=== PATIENT | female | born 1955 | race Caucasian/White ===

== ENCOUNTER 2020-01-04 11:14 | Inpatient (IN) | payer MEDICARE ==
[~2020-01-04] VITALS: Ht 162.6 cm; Wt 72.8 kg
[2020-01-04 12:20] VITALS: BP 91/41
[2020-01-04] MEDS ORDERED: PROPOFOL 10 MG/ML 20ML VIAL IV ONE (12:32)
[2020-01-04] MEDS ORDERED: LIDOCAINE HCL-MPF 2% 5ML VIAL ONE (12:33)
[2020-01-04 12:40] LABS: BASOPHILS % (AUTO) 0.5 % (0.0-5.0); EOSINOPHILS % (AUTO) 0.2 % (0.0-8.0); LYMPHOCYTES % (AUTO) 14.2 % (21.0-51.0); MEAN CORPUSCULAR HEMOGLOBIN 27.2 pg (27.0-33.0); MEAN CORPUSCULAR HGB CONC 32.4 g/dL (32.0-36.0); MEAN CORPUSCULAR VOLUME 83.9 fL (79-99); MONOCYTES % (AUTO) 8.1 % (3.0-13.0); NEUTROPHILS % (AUTO) 72.8 % (40.0-77.0); NUCLEATED RED BLOOD CELLS 0.2 % (0.0-0.19); PLATELET COUNT (AUTO) 272 K/uL (130-400); RED BLOOD CELL COUNT(AUTO) 2.24 MIL/uL (4.00-5.50); RED CELL DISTRIBUTION WIDTH 19.2 % (11.0-15.5); WHITE BLOOD COUNT (AUTO) 12.8 K/uL (4.8-10.8)
[2020-01-04] MEDS ORDERED: PHENYLEPHRINE HCL 10 MG/ML 1ML VIAL IV ONE (12:47)
[2020-01-04] MEDS ORDERED: SODIUM CHLORIDE 0.9% 10 ML VIAL ONE (12:47)
[2020-01-04 12:51] LABS: INR 1.13 (0.85-1.15); PROTHROMBIN TIME 12.1 SEC (9.6-11.6)
[2020-01-04 12:53] LABS: CREATININE 0.8 mg/dL (0.5-1.5); POTASSIUM 4.3 mmol/L (3.5-5.1)
[2020-01-04 13:02] LABS: ALBUMIN 2.6 g/dL (3.5-5.0); HEMATOCRIT 18.8 % (36-48); TOTAL PROTEIN, SERUM 5.7 g/dL (6.0-8.3)
[2020-01-04] MEDS ORDERED: METOCLOPRAMIDE 10 MG/2 ML VIAL ONE ×2 (14:51→21:18)
[2020-01-04 22:05] VITALS: BP 103/61
[2020-01-05] VITALS (16 sets, daily range): BP systolic 86–131; BP diastolic 51–73
[2020-01-05] MEDS ORDERED: MORPHINE SULFATE 2 MG/ML 1ML SYG IM PRN (00:30)
[2020-01-05] MEDS ORDERED: VALA10002 PO (00:44)
[2020-01-05 02:13] LABS: BASOPHILS % (AUTO) 0.5 % (0.0-5.0); EOSINOPHILS % (AUTO) 0.2 % (0.0-8.0); HEMATOCRIT 23.7 % (36-48); LYMPHOCYTES % (AUTO) 14.1 % (21.0-51.0); MEAN CORPUSCULAR HEMOGLOBIN 28.3 pg (27.0-33.0); MEAN CORPUSCULAR HGB CONC 34.2 g/dL (32.0-36.0); MEAN CORPUSCULAR VOLUME 82.9 fL (79-99); MONOCYTES % (AUTO) 8.8 % (3.0-13.0); NEUTROPHILS % (AUTO) 74.7 % (40.0-77.0); NUCLEATED RED BLOOD CELLS 0.3 % (0.0-0.19); PLATELET COUNT (AUTO) 163 K/uL (130-400); RED BLOOD CELL COUNT(AUTO) 2.86 MIL/uL (4.00-5.50); RED CELL DISTRIBUTION WIDTH 16.3 % (11.0-15.5); WHITE BLOOD COUNT (AUTO) 12.5 K/uL (4.8-10.8)
[2020-01-05] MEDS ORDERED: FAMOTIDINE/PF 20 MG/2 ML VIAL IV ONE (02:19)
[2020-01-05 02:34] LABS: ALBUMIN 2.4 g/dL (3.5-5.0); BILIRUBIN,TOTAL 2.5 mg/dL (0.2-1.0); CREATININE 0.7 mg/dL (0.5-1.5); POTASSIUM 3.8 mmol/L (3.5-5.1); TOTAL PROTEIN, SERUM 5.3 g/dL (6.0-8.3)
[2020-01-05 02:43] LABS: INR 1.08 (0.85-1.15); PARTIAL THROMBOPLASTIN TIME 24.7 SEC (26.3-35.5); PROTHROMBIN TIME 11.6 SEC (9.6-11.6)
[2020-01-05] MEDS ORDERED: LORA2ORA5 PO (03:10)
[2020-01-05] MEDS ORDERED: CORTSOL AD (03:10)
[2020-01-05] MEDS ORDERED: LEVO50TA11 PO (03:10)
[2020-01-05] MEDS ORDERED: HYDR-3422 PO (03:10)
[2020-01-05] MEDS: METOCLOPRAMIDE 10 MG/2 ML VIAL IM SCH (03:14)
[2020-01-05] MEDS: ONDANSETRON HCL 4 MG/2 ML VIAL IVP PRN (03:14)
[2020-01-05] MEDS: SODIUM CHLORIDE 0.9% 1000ML 1,000 ML IV SCH ×2 (08:53→10:30)
[2020-01-05] MEDS ORDERED: FAMOTIDINE/PF 20 MG/2 ML VIAL IV SCH (09:00)
[2020-01-05] MEDS ORDERED: PROPOFOL 10 MG/ML 20ML VIAL IV ONE (12:19)
[2020-01-05] MEDS ORDERED: OCTREOTIDE ACETATE 1,250 MCG in SODIUM CHLORIDE 0.9% 250 ML IV SCH ×2 (12:30→13:15)
--- NOTE | 2020-01-05 12:50 | NUR ---
[facility] CONSULT PATIENT CURRENTLY NOT IN ROOM; UNABLE TO ASSESS DUE TO SCHEDULED PROCEDURE. WILL CHECK BACK AT A LATER TIME FOR CONSULT. Addendum: 01/05/20 at 1253 by NIGEL ESCOBAR LVN Amended: Links added.
[2020-01-05] MEDS ORDERED: OCTREOTIDE ACETATE 100 MCG/ML AMP IV SCH ×2 (13:15)
--- NOTE | 2020-01-05 16:52 | NUR ---
DISCHARGE PLANNING, POSSIBLE SNF? MET W PATIENT FOR DC PLANNING LIVES ALONE, HAS TWO CANES, SOMETIMES USES ONE, SOME TIMES BOTH; HOME ISS SAFE AND ACCESSIBLE, USED TO DRIVE, BUT IS VERY WEAK AND CANNOT RIGHT NOW..[facility] OR ONE OF HER FRIEND RYAN OR SHER, HAS GOOD SUPPORT SYSTEM; PATIENT HAS BEEN 'FIGHTING THIS (CANCER) FOR A VERY LONG TIME'; WAS ON ONCE MONTHLY INFUSION, BUT THEY HAVE BEEN STOPPED. HAS A HISTORY OF FALLS. DISCUSSED PLACEMENT, PATIENT INTERESTED. DOS NOT KNOW WHICH FACILITY. IS FAMILIAR WITH ALL SNF'S IN [facility]. CALL TO DR. JENSEN, DISCUSSED DCP ELZBIETA, GOT ORDER OFR PT, RD, AND SNF REFERRAL IF PT AGREES AND PT RECOMMENDS CM TO FOLLOW IN AM AFTER PT EVAL Addendum: 01/05/20 at 1811 by GERMAN CATHERINE RN CM Amended: Links added.
[2020-01-05] MEDS: PANTOPRAZOLE SODIUM 40 MG TABLET.DR PO SCH (20:14)
[2020-01-06] VITALS (7 sets, daily range): BP systolic 91–105; BP diastolic 53–65
[2020-01-06] MEDS: METOCLOPRAMIDE 10 MG/2 ML VIAL IM SCH (02:39)
--- NOTE | 2020-01-06 05:36 | NUR ---
report called to giovanny all questions answered pt [id number] at time of transfer lfa iv still in place. gonzález sparrow sent with patient
[2020-01-06] MEDS: ONDANSETRON HCL 4 MG/2 ML VIAL IVP PRN ×3 (06:06→23:21)
[2020-01-06] MEDS: PANTOPRAZOLE SODIUM 40 MG TABLET.DR PO SCH ×2 (09:10→20:51)
--- NOTE | 2020-01-06 16:00 | NUR ---
DR. MARTIN Ghosh CAME TO SEE PATIENT AT BEDSIDE, ORDERS CBC, BMP NO OTHER ORDERS AT THIS TIME.
--- NOTE | 2020-01-06 18:14 | NUR ---
DIET Davina EDWARD CAME IN TO SEE PATIENT WANTED TO ADVANCE HER DIET BUT PT REFUSES THE ADVANCE DIET D/T HAVING PAIN. SHE WANT TO REMAIN ON FULL LIQUIDS FOR NOW.
[2020-01-06] MEDS: SODIUM CHLORIDE 0.9% 1000ML 1,000 ML IV SCH (20:52)
[2020-01-07] MEDS: SODIUM CHLORIDE 0.9% 1000ML 1,000 ML IV SCH ×3 (01:32→20:16)
[2020-01-07 04:00] VITALS: BP 99/64
[2020-01-07 05:15] LABS: MEAN CORPUSCULAR HEMOGLOBIN 28.3 pg (27.0-33.0); MEAN CORPUSCULAR VOLUME 85.5 fL (79-99); PLATELET COUNT (AUTO) 139 K/uL (130-400); RED BLOOD CELL COUNT(AUTO) 2.69 MIL/uL (4.00-5.50); RED CELL DISTRIBUTION WIDTH 17.6 % (11.0-15.5); WHITE BLOOD COUNT (AUTO) 6.9 K/uL (4.8-10.8)
[2020-01-07 05:24] LABS: CREATININE 0.7 mg/dL (0.5-1.5); POTASSIUM 3.2 mmol/L (3.5-5.1)
[2020-01-07 05:28] LABS: BASOPHILS % (MANUAL) 2 % (0-2); LYMPHOCYTES % (MANUAL) 16 % (22-44); MAN.DIFF COMMENT-IMPRESSION MANUAL DIFFERENTIAL; MONOCYTES % (MANUAL) 2 % (2-9); PLATELET MORPHOLOGY COMMENT ADEQUATE; SEGMENTED NEUTROPHILS % 80 % (40-70)
[2020-01-07 07:47] VITALS: BP 94/64
[2020-01-07] MEDS: PANTOPRAZOLE SODIUM 40 MG TABLET.DR PO SCH ×2 (08:59→20:15)
[2020-01-07 11:24] VITALS: BP 107/54
[2020-01-07] MEDS ORDERED: LIDOCAINE HCL-MPF 1% 2ML VIAL IV PRN (12:00)
[2020-01-07] MEDS ORDERED: POTASSIUM CHLORIDE 20MEQ/100ML 100 ML IV PRN (12:00)
[2020-01-07] MEDS ORDERED: POTASSIUM CHLORIDE 10% ELIXIR 20 MEQ/15 ML UDCUP PO PRN (12:00)
[2020-01-07] MEDS: ONDANSETRON HCL 4 MG/2 ML VIAL IVP PRN (13:22)
--- NOTE | 2020-01-07 13:25 | NUR ---
NAUSEA PT C/O OF NAUSEA GIVEN 4MG OF ZOFRAN
[2020-01-07] MEDS: POTASSIUM CHLORIDE 20 MEQ ERTAB PO PRN ×3 (14:45→20:18)
[2020-01-07 16:13] VITALS: BP 97/57
--- NOTE | 2020-01-07 17:38 | NUR ---
DCP SNF CM in to speak w pt twice today regarding Md order/recommendation for SNF. Discussed local SNF options. She mentions that she will speak w her brother first before making a decision. She states that she does not want to go to [facility] or [facility]. She mentions that she will inform CM of her decision once she discusses further w her brother and Dr. Salinas.
[2020-01-07 20:00] VITALS: BP 97/55
[2020-01-07 23:36] VITALS: BP 96/49
[2020-01-08 04:00] VITALS: BP 104/60
[2020-01-08 05:26] LABS: BASOPHILS % (AUTO) 0.4 % (0.0-5.0); EOSINOPHILS % (AUTO) 1.2 % (0.0-8.0); HEMATOCRIT 24.2 % (36-48); LYMPHOCYTES % (AUTO) 15.2 % (21.0-51.0); MEAN CORPUSCULAR HEMOGLOBIN 28.4 pg (27.0-33.0); MEAN CORPUSCULAR HGB CONC 32.6 g/dL (32.0-36.0); MEAN CORPUSCULAR VOLUME 87.1 fL (79-99); MONOCYTES % (AUTO) 11.5 % (3.0-13.0); NEUTROPHILS % (AUTO) 70.4 % (40.0-77.0); PLATELET COUNT (AUTO) 170 K/uL (130-400); RED BLOOD CELL COUNT(AUTO) 2.78 MIL/uL (4.00-5.50); RED CELL DISTRIBUTION WIDTH 17.8 % (11.0-15.5); WHITE BLOOD COUNT (AUTO) 7.5 K/uL (4.8-10.8)
[2020-01-08 05:40] LABS: CREATININE 0.8 mg/dL (0.5-1.5); POTASSIUM 3.7 mmol/L (3.5-5.1)
[2020-01-08] MEDS: ONDANSETRON HCL 4 MG/2 ML VIAL IVP PRN ×2 (06:02→20:46)
[2020-01-08 07:30] VITALS: BP 96/60
[2020-01-08] MEDS: PANTOPRAZOLE SODIUM 40 MG TABLET.DR PO SCH ×2 (09:23→20:46)
[2020-01-08 11:00] VITALS: BP 103/65
[2020-01-08 16:00] VITALS: BP 90/63
[2020-01-08 20:24] VITALS: BP 91/51
[2020-01-09 00:08] VITALS: BP 94/54
[2020-01-09 03:57] VITALS: BP 93/51
[2020-01-09] MEDS: SODIUM CHLORIDE 0.9% 1000ML 1,000 ML IV SCH (05:26)
[2020-01-09] MEDS: PANTOPRAZOLE SODIUM 40 MG TABLET.DR PO SCH ×2 (09:10→22:39)
--- NOTE | 2020-01-09 09:38 | NUR ---
CM NOTE/SNF DISCUSSION MEET WITH PATIENT REGARDS TO SNF RECOMMENDATIONS. [facility] AND [facility]OND [facility] WILL BE [facility]. CM TO FOLLOW UP.
[2020-01-09 11:00] VITALS: BP 109/54
[2020-01-09 11:12] VITALS: BP 109/54
--- NOTE | 2020-01-09 13:07 | NUR ---
RD NOTIFICATION Pt admitted with Upper GI Bleed, Liver Dz, multiple Liver adenomas, as per EMR. Pt with GI Soft/Bonner Diet order. Poor PO intake d/t loss of appetite d/t pain, as per Pt. Pt requests Icy liquids with meals. Pt dislikes Ensure, agrees to try ProMod. No pudding except for chocolate. Recommend Popsicles/Lao Ice with meals Recommend 30mL ProMod TID RD to continue to monitor. Please notify as additional nutrition concerns arise. Thank you. Addendum: 01/09/20 at [address] Amended: Links added.
--- NOTE | 2020-01-09 13:30 | NUR ---
DR DIXON REVIEWED LABS FOR CBC AND CHEMISTRY INCLUDING LIVER ENZYMES,AND HOME MED LIST . INFORMED MD ON PATIENT WITH NOT FULLY ALERTNESS AND LET HIM KNOW I HAD CHECKED IF THERE WAS AN AMMONIA LEVEL BUT NO CURRENT OR PREVIOUS .PER MD STATED PATIENT OK AND WEAK FROM ANEMIA. MD SPOKE WITH PATIENT, AND ASKED ON CASE MANAGEMENT PROGRESS WITH SNF. NO FURTHER ORDERS GIVEN
[2020-01-09 13:49] LABS: ALANINE AMINOTRANSFERASE 215 U/L (12-78); ALBUMIN 1.7 g/dL (3.5-5.0); ASPARTATE AMINOTRANSFERASE 245 U/L (10-37); BILIRUBIN,DIRECT 2.2 mg/dL (0.0-0.3); BILIRUBIN,TOTAL 2.6 mg/dL (0.2-1.0); TOTAL PROTEIN, SERUM 5.1 g/dL (6.0-8.3)
[2020-01-09 13:50] LABS: AMMONIA < 3 umol/L (11-32)
[2020-01-09] MEDS: VALACYCLOVIR HCL 500 MG TABLET PO SCH ×2 (15:57→22:39)
--- NOTE | 2020-01-09 17:21 | NUR ---
REVIEWED RESULT OF LIVER PANEL/ [facility] - ALL NORMALIZED SWABBED FOR COVID BY KYE AT [facility] EXPECTING PATIENT TO BE DISCHARGED TO [facility] IN AM. KYE STATES DO NOT NEED IT BACK, JUST NEED THE TEST DONE.
[2020-01-09 18:08] VITALS: BP 98/62
[2020-01-09 20:20] VITALS: BP 100/60
[2020-01-10 00:16] VITALS: BP 91/42
[2020-01-10 04:24] VITALS: BP 97/60
[2020-01-10] MEDS ORDERED: LEVOTHYROXINE 50 MCG TABLET PO SCH (07:30)
[2020-01-10 07:56] VITALS: BP 109/42
[2020-01-10] MEDS: PANTOPRAZOLE SODIUM 40 MG TABLET.DR PO SCH (08:59)
[2020-01-10] MEDS: VALACYCLOVIR HCL 500 MG TABLET PO SCH (09:00)
[2020-01-10 11:23] VITALS: BP 98/52
--- NOTE | 2020-01-10 13:45 | NUR ---
DISCHARGE PATIENT GIVEN DISCHARGE INSTRUCTIONS AND EDUCATION ON FOLLOW UP APPOINTMENTS AND NEW PRESCRIBED MEDICATIONS. PATIENT VERBALIZED UNDERSTANDING OF ALL EDUCATION GIVEN VIA TEACH BACK. NO DISTRESS NOTED UPON DISCHARGE. PATIENT STATED SHE HAD A BM 2 DAYS AGO. IV DISCONTINUED, CATHETER INTACT. ALL BELONGINGS TAKEN WITH. REPORT GIVEN TO IVA OREILLY LVN AT [facility]. ALL QUESTIONS ANSWERED ACCORDINGLY. IVA AWARE OF PT DIET, PT, F/U APPOINTMENTS, AND NEW RX. PATIENT LEFT VIA WHEELCHAIR, ALL BELONGINGS TAKEN WITH.
--- NOTE | 2020-01-10 17:51 | NUR ---
DISCHARGED TO [facility]IA [facility] TRANSPORT TO CONTINUE PHYSICAL THERAPY. COVID SCREENING FORM SENT WITH PATIENT Addendum: 01/10/20 at 1752 by GERMAN CATHERINE RN CM Amended: Links added.
== END 2020-01-10 14:40 | DRG 377 ==
LOC: EDH 11:14 → EDHIP 11:16 → 4CH 21:58 → 3AH 01-06 05:34
PROVIDERS: ADMIT Internal Medicine Hematology & Oncology; ATTEND Internal Medicine Hematology & Oncology
PROC: 30233N1 Transfusion of Nonautologous Red Blood Cells into Peripheral Vein, Percutaneous Approach (ICD-10-PCS; 2020-01-04)
PROC: 0DJ08ZZ Inspection of Upper Intestinal Tract, Via Natural or Artificial Opening Endoscopic (ICD-10-PCS; principal; 2020-01-05)
PROC: 06L38CZ Occlusion of Esophageal Vein with Extraluminal Device, Via Natural or Artificial Opening Endoscopic (ICD-10-PCS; 2020-01-05)
DX: K29.51 Unspecified chronic gastritis with bleeding (principal); E43 Unspecified severe protein-calorie malnutrition; C22.0 Liver cell carcinoma; C79.9 Secondary malignant neoplasm of unspecified site; D62 Acute posthemorrhagic anemia; K76.6 Portal hypertension; R64 Cachexia; K92.0 Hematemesis; K44.9 Diaphragmatic hernia without obstruction or gangrene; E86.0 Dehydration; B02.9 Zoster without complications; I85.10 Secondary esophageal varices without bleeding; K22.70 Barrett's esophagus without dysplasia; K31.89 Other diseases of stomach and duodenum; K74.60 Unspecified cirrhosis of liver; R21 Rash and other nonspecific skin eruption; Z85.05 Personal history of malignant neoplasm of liver; Z80.1 Family history of malignant neoplasm of trachea, bronchus and lung; Z80.41 Family history of malignant neoplasm of ovary; Z88.1 Allergy status to other antibiotic agents; Z88.5 Allergy status to narcotic agent; Z88.8 Allergy status to other drugs, medicaments and biological substances
CPT/HCPCS: 36415; 43235; 43244; 80048; 80053; 80076; 82140; 85025; 85610; 85730; 86850; 86900; 86901; 86922; 97039; A4606; G0378; J2354; J2370; J2405; J2704; J2765; J3490; J7030; J7050; P9016